=== PATIENT | male | born 2000 | race Caucasian/White ===

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

== ENCOUNTER 2021-08-28 10:24 | Emergency (ER) | payer OTHER, SELFPAY ==
--- NOTE | ~2021-08-28 | XR_ITS ---
XR knee LT 2V DATE: 08/28/2021 10:56 INDICATION: Anterior knee pain after jumping one day ago TECHNIQUE: AP and crosstable lateral views COMPARISON: None FINDINGS: No fracture or dislocation or joint effusion. Joint spaces are preserved. No radiopaque int ra-articular loose body or chondrocalcinosis. IMPRESSION: Negative Reviewed, dictated and finalized at location A. IMPRESSION: Negative
[2021-08-28 10:30] VITALS: BP 126/70; PULSE 75; RESP 18; TEMP 36.6; O2SAT 97
[2021-08-28 10:31] VITALS: BP 126/70; PULSE 85; RESP 18; TEMP 36.6; O2SAT 98
--- NOTE | 2021-08-28 11:21 | ED.LOWEXIN ---
HPI - Extremity Injury (Lower) General Chief Complaint: Extremity Injury, Lower Stated Complaint: L KNEE PAIN Source: patient Mode of arrival: ambulatory Limitations: no limitations History of Present Illness HPI Narrative: this is a 21-year-old gentleman that presents with left knee pain after his playing basketball knee jumped in the air as he landed he ordered a pop and twisted his left knee has some mild tenderness anterior pretibial area with palpation has decreased range of motion secondary to pain and inflammation. complaint: knee injury Onset (ago): day(s) Type of Injury: blunt Place: street/outdoors Severity: moderate Severity scale (1-10): 4 Relieving factors: immobilization Exacerbating factors: weight bearing Context: jumping Related Data Allergies Allergy/AdvReac Type Severity Reaction Status Date / Time No Known Allergies Allergy Verified 12/20/19 16:55 Review of Systems Review of Systems: All systems reviewed & are unremarkable except as noted in HPI and below PMFSH Past Medical History Medical History (Updated 08/28/21 @ 11:25 by Pelon Wisdom MD) Patient denies medical problems Exam Const: General: healthy appearing and no acute distress Limitations: no limitations HENMT: Head: normal to inspection Face and sinus: normal facial exam Eyes: Conjunctivae: conjunctivae normal Pupils: Equal, round and reactive pupils present Neck: Neck: normal visual inspection, no lymphadenopathy and no meningeal signs Chest: Chest palpation & inspection: normal inspection of the chest Resp: Effort & Inspection: normal respiratory effort Auscultation: clear to auscultation bilaterally Cardio: Rate: regular rate Rhythm: regular rhythm GI: GI Palp: Yes Soft to palpation Auscultation: normal bowel sounds Skin: General skin exam: normal color Rashes: no rashes Wounds: no wounds Extrem: Other: pretibial tenderness with palpation with decreased range of motion the left knee Psych: Mental Status: mental status grossly normal Course Course Emergency Course: x-ray performed and reviewed with patient shows no acute fractures suspect a ligament strain and will place knee immobilizer and have patient follow-up with his primary. Vital Signs Vital signs: Vital Signs Temperature 36.6 C 08/28/21 10:30 Pulse Rate 75 08/28/21 10:30 Respiratory Rate 18 08/28/21 10:30 Blood Pressure 126/70 08/28/21 10:30 Pulse Oximetry 97 08/28/21 10:30 Oxygen Delivery Room Air 08/28/21 10:30 Temperature 36.6 C 08/28/21 10:31 Pulse Rate 85 08/28/21 10:31 Respiratory Rate 18 08/28/21 10:31 Blood Pressure 126/70 08/28/21 10:31 Pulse Oximetry 98 08/28/21 10:31 Oxygen Delivery Room Air 08/28/21 10:31 Critical Care Time Critical Care Time Critical Care Time: No Discharge Plan Discharge Clinical Impression: Left knee sprain Qualifiers: Encounter type: initial encounter Involved ligament of knee: unspecified ligament Qualified Code(s): S83.92XA - Sprain of unspecified site of left knee, initial encounter Patient Disposition: Home, Self-Care Condition: Stable Instructions: Antibiotic Form, Knee Sprain (ED) Additional Instructions: rest, take medicine as prescribed elevate affected knee take medicine as prescribed and follow-up with primary care physician within the next day for further evaluation treatment. Prescriptions: New naproxen 500 mg tablet 500 mg PO BID Qty: 14 0RF Follow-up/Referrals: Gordon Vaughan MD [Primary Care Provider] - Time of Disposition: 11:25
[2021-08-28 11:29] VITALS: BP 126/70; PULSE 74; RESP 18; TEMP 37.1; O2SAT 97
== END 2021-08-28 11:32 | disposition home or self-care (01) ==
PROVIDERS: Emergency Provider Emergency Medicine; PCP Internal Medicine
DX: S83.92XA Sprain of unspecified site of left knee, initial encounter (principal)
CPT/HCPCS: 73560; 99283; L1830

== ENCOUNTER 2021-09-18 15:57 | Outpatient (RCR) | payer OTHER, SELFPAY ==
--- NOTE | 2021-09-18 16:53 | PTOPEVAL ---
Thank you for referring Austin Ocampo to [facility].? The patient is scheduled to be seen for therapy? __3__x/week for 12 visits. Please review, sign, date and return this plan of care MANASA. I agree with and certify that the following plan of care is medically necessary. Referring Physician Date Admitting Provider: Attending Provider: Leslee Palencia, [employer] Referring Provider: *PT Outpatient Evaluation Start: 09/18/21 16:01 Freq: Status: Active Protocol: Document 09/18/21 16:01 JEREMIAH (Rec: 09/18/21 16:53 JEREMIAH [email or web address]) Therapy Assessment Status Assessment Status Assessment Status Evaluation Evaluation Information Problem Diagnosis sprain of medial collateral ligament, knee instability, left Onset 08/27/21 Subjective Information Pt. reports that he injured Query Text:As Reported By Patient/ himself playing basketball. Family He states that he was jumping up for a rebound and felt a pop in the knee. He states that he had immediate pain. He reports that it has gotten better. He reports that he doesnt have any current pain, but has not tried running, jumping or shifting. He reports no pain with walking. He is wearing a knee brace. He reports that he is in the [employer] and is scheduled to be depolyed in November. He reports that his goal is to be able to run, jump and participate in all activities he did prior to injury. Pain Assessment Timing of Pain Assessment Timing of Pain Assessment Pre-Treatment Self Report Self Report Pain Level 0 Pain Score Pain Score 0: Self Report Lower Extremity Range of Motion General Lower Extremity Range of Motion Gross Lower Extremity Range of Motion -left knee AROM 0-125 Comments -right knee AROM 0-137 Lower Extremity Muscle Strength Testing General Lower Extremity Strength Gross Lower Extremity Strength -bilateral hip flexion 5/5 -right hip abduction 5/5 -left hip abduction 4+/5 -bilateral knee flexion 5/5 -bilateral knee extension 5/5 -bilateral ankle dorsiflexion
== END 2021-10-04 13:42 | disposition home or self-care (01) ==
LOC: CHSPT 15:57
PROVIDERS: Visit Provider Nurse Practitioner Family
DX: S83.412A Sprain of medial collateral ligament of left knee, initial encounter (principal); M25.362 Other instability, left knee
CPT/HCPCS: 97110; 97161